=== PATIENT | male | born 1995 | race Caucasian/White ===

== ENCOUNTER 2016-06-13 13:33 | Outpatient (CLI) | payer OTHER | END 2016-06-13 13:34 | disposition home or self-care (01) | DX: R05 Cough (principal) ==

== ENCOUNTER 2020-08-22 12:54 | Emergency (ER) | payer OTHER ==
[2020-08-22 13:00] VITALS: BP 178/74
[2020-08-22] MEDS ORDERED: TETANUS/DIPHTHERIA/PERTUSSIS 0.5 ML SYRINGE IM ONE (13:28)
--- NOTE | 2020-08-22 13:31 | ED Physician Documentation ---
History of Present Illness - Stated complaint Stated Complaint: RT THUMB LAC - Chief complaint Chief Complaint: Laceration - History obtained from History obtained from: Patient, Family - History of Present Illness Timing: Today (25-year-old gentleman with unknown tetanus status cut his hand, the right thumb which is the dominant 1 on a mandolin slicer while working today.) PD PAST MEDICAL HISTORY - Past Medical History Past Medical History: No Cardiovascular: None Respiratory: Asthma Neuro: None Endocrine/Autoimmune: None GI: None : None HEENT: None Psych: ADD/ADHD Musculoskeletal: None Derm: None - Past Surgical History Past Surgical History: No - Present Medications Home Medications: Ambulatory Orders Medication Instructions Recorded Confirmed Albuterol Sulfate [Proair Hfa 1 - 2 puffs INH Q4H PRN 08/22/20 08/22/20 Inhaler] Bacitracin Zinc Oint 1 applic TOP DAILY #1 gm 08/22/20 - Allergies Allergies/Adverse Reactions: Allergies Allergy/AdvReac Type Severity Reaction Status Date / Time No Known Drug Allergies Allergy Verified 08/22/20 13:00 - Social History Does the pt smoke?: No Smoking Status: Never smoker Does the pt drink ETOH?: No Does the pt have substance abuse?: No - Immunizations Immunizations are current?: Yes - POLST Patient has POLST: No PD ED PE NORMAL - Vitals Vital signs reviewed: Yes - General General: Alert and oriented X 3, No acute distress - Extremities Extremities: Other (On the end of the right thumb, radial side there is a 5 mm x 1 cm tissue defect with active bleeding. No nailbed involvement.) - Neuro Neuro: Alert and oriented X 3, Normal speech - Psych Psych: Normal mood, Normal affect Results - Vitals Vitals: Vital Signs - 24 hr 08/22/20 12:57 Temperature 36.2 C L Heart Rate 107 H Respiratory 16 Rate Blood Pressure 178/74 H O2 Saturation 97 Oxygen O2 Source Room air PD MEDICAL DECISION MAKING - ED course ED course: The wound was irrigated and then dressed with Gelfoam and tube gauze with hemostasis and he was counseled on wound care. Tetanus was updated. Departure - Departure Disposition: 01 Home, Self Care Clinical Impression: Fingertip amputation Qualifiers: Encounter type: initial encounter Qualified Code(s): S68.119A - Complete traumatic metacarpophalangeal amputation of unspecified finger, initial encounter Condition: Good Record reviewed to determine appropriate education?: Yes Instructions: ED Laceration Amputation Finger Tip Open Tx Prescriptions: Bacitracin Zinc Oint 1 applic TOP DAILY #1 gm Comments: Keep the current dressing on until Monday morning. At that time you can wash briefly with soap and water and then apply the antibiotic ointment, a nonstick dressing such as Telfa and a loose wrap. Over the next couple weeks this defect will fill in completely. If you are not healing well over time follow-up with your primary care physician for reevaluation. Return for new or worsening symptoms. Forms: Activity restrictions
== END 2020-08-22 13:40 | disposition home or self-care (01) ==
LOC: ED 12:54
DX: S61.011A Laceration without foreign body of right thumb without damage to nail, initial encounter (principal); W27.4XXA Contact with kitchen utensil, initial encounter; Y99.0 Civilian activity done for income or pay; Z23 Encounter for immunization
CPT/HCPCS: 90471; 99281; 99283

== ENCOUNTER 2021-06-29 08:00 | Outpatient (CLI) | payer OTHER ==
[2021-06-29 22:38] LABS: CHLAMYDIA TRACHOMATIS DNA NEGATIVE (NEGATIVE); NEISSERIA GONORRHOEAE DNA NEGATIVE (NEGATIVE)
[2021-06-30 11:41] LABS: HEPATITIS C ANTIBODY NON-REACTIVE (NON-REACTIVE)
[2021-06-30 12:46] LABS: HIV AG/AB 4TH GEN NON-REACTIVE (NON-REACTIVE)
[2021-07-01 13:31] LABS: HSV 1 IGG TYPE SPECIFIC AB <0.90 index; HSV 2 IGG TYPE SPECIFIC AB <0.90 index
== END 2021-06-29 23:59 ==
LOC: LAB.N 08:00
PROVIDERS: ATTEND Nurse Practitioner
DX: Z11.3 Encounter for screening for infections with a predominantly sexual mode of transmission (principal)
CPT/HCPCS: 81599; 86592; 86695; 86696; 86803; 87389; 87491; 87591; 87661

== ENCOUNTER 2022-07-22 09:09 | Day surgery (SDC) | payer MEDICAID ==
[2022-07-22] MEDS ORDERED: LACTATED RINGERS 1,000 ML IV ONE ×2 (09:21→11:01)
--- NOTE | 2022-07-22 09:54 | ANESTHESIA ---
Pre-Anesthesia VS, & Labs - Diagnosis Reflux and cough - Procedure EGD Vital Signs: Temp Pulse Resp BP Pulse Ox O2 Flow Rate 36.1 C L 81 18 142/93 H 96 07/22/22 09:22 07/22/22 09:22 07/22/22 09:22 07/22/22 09:22 07/22/22 09:22 Height: 6 ft Weight (kg): 126.55 kg Body Mass Index: 37.8 BMI Classification: Obese - NPO >8 hours Home Medications and Allergies Home Medications: Ambulatory Orders Montelukast [Singulair] 10 mg PO QPM 07/21/22 Tamoxifen [Nolvadex] 10 mg PO DAILY 07/21/22 Albuterol Sulfate [Proair Hfa Inhaler] 1 - 2 puffs INH Q4H PRN 08/22/20 Montelukast [Singulair] 10 mg PO QPM 07/21/22 Tamoxifen [Nolvadex] 10 mg PO DAILY 07/21/22 Allergies/Adverse Reactions: Allergies Allergy/AdvReac Type Severity Reaction Status Date / Time No Known Drug Allergies Allergy Verified 07/22/22 09:22 Anes History & Medical History - Anesthetic History Anesthesia Complications: reports: No previous complications - Medical History Cardiovascular: reports: None Pulmonary: reports: Asthma, Sleep apnea (scheduled for sleep study) Gastrointestinal: reports: None Urinary: reports: None Neuro: reports: None Musculoskeletal: reports: None Endocrine/Autoimmune: reports: None Blood Disorders: reports: None Skin: reports: None Smoking Status: Never smoker Psychosocial: reports: Other (ADHD) History of Cancer?: No - Surgical History Orthopedic: reports: Other (left humerous ORIF) Exam General: Alert, Oriented x3, Cooperative, No acute distress Dental: WNL Mouth Openin Fingerbreadth Neck Mobility: Normal Mallampati classification: II Thyromental Distance: 4-6 cm Mental/Cognitive Status: Alert/Oriented X3, Normal for patient Plan Anesthesia Type: General, Total IV Consent for Procedure(s) Verified and Reviewed: Yes Code Status: Attempt Resuscitation ASA classification: 3-Severe systemic disease Is this case an emergency?: No
[2022-07-22] MEDS ORDERED: LIDOCAINE-MPF 2% 5 ML VIAL ONE (10:23)
[2022-07-22] MEDS ORDERED: PROPOFOL 200 MG/20 ML VIAL IVP ONE ×2 (10:23→10:51)
[2022-07-22] MEDS ORDERED: MIDAZOLAM 2 MG/2 ML VIAL ONE (10:23)
[2022-07-22 11:05] VITALS: BP 143/80
--- NOTE | 2022-07-22 13:09 | ANESTHESIA POST OP EVALUATION ---
Anesthesia Post Eval - Post Anesthesia Eval Vitals: Last Vital Signs Temp 36.0 C L 07/22/22 11:15 Pulse 98 07/22/22 11:15 Resp 15 07/22/22 11:15 BP 143/80 H 07/22/22 11:15 Pulse Ox 95 07/22/22 11:15 O2 Flow Rate CV Function Including HR & BP: Stable Pain Control: Satisfactory Nausea & Vomiting: Negative Mental Status: Baseline Respiratory Status: Airway Patent Hydration Status: Satisfactory Anesthesia Complications: None
== END 2022-07-22 09:10 | disposition home or self-care (01) ==
LOC: SDS 09:09
PROVIDERS: ATTEND Surgery
PROC: 0DB58ZX Excision of Esophagus, Via Natural or Artificial Opening Endoscopic, Diagnostic (ICD-10-PCS; principal; 2022-07-22 10:30)
DX: R05.3 Chronic cough (principal); M51.36 Other intervertebral disc degeneration, lumbar region; E66.9 Obesity, unspecified; J45.909 Unspecified asthma, uncomplicated; G47.30 Sleep apnea, unspecified; R73.01 Impaired fasting glucose; Z13.9 Encounter for screening, unspecified; Z68.38 Body mass index [BMI] 38.0-38.9, adult; Z83.3 Family history of diabetes mellitus
CPT/HCPCS: 36415; 43239; 71046; 72110; 80053; 83036; 84443; 85025; J7120

== ENCOUNTER 2022-07-22 11:46 | Outpatient (CLI) | payer MEDICAID ==
[2022-07-22 12:07] LABS: BASOPHILS # (AUTO) 0.1 10^3/uL (0.0-0.1); BASOPHILS % (AUTO) 0.9 %; EOSINOPHILS # (AUTO) 0.1 10^3/uL (0.0-0.7); EOSINOPHILS % (AUTO) 2.2 %; HCT - HEMATOCRIT 43.3 % (42.0-52.0); HGB - HEMOGLOBIN 13.9 g/dL (14.0-18.0); LYMPHOCYTES # (AUTO) 2.1 10^3/uL (1.5-3.5); LYMPHOCYTES % (AUTO) 32.5 %; MEAN CORPUSCULAR HEMOGLOBIN 26.4 pg (27.0-31.0); MEAN CORPUSCULAR HGB CONC 32.1 g/dL (32.0-36.0); MEAN CORPUSCULAR VOLUME 82.2 fL (80.0-94.0); MEAN PLATELET VOLUME 11.1 fL (7.4-11.4); MONOCYTES # (AUTO) 0.4 10^3/uL (0.0-1.0); MONOCYTES % (AUTO) 5.9 %; NEUTROPHILS # (AUTO) 3.8 10^3/uL (1.5-6.6); NEUTROPHILS % (AUTO) 58.3 %; PLT - PLATELET COUNT 231 10^3/uL (130-450); RED BLOOD COUNT 5.27 10^6/uL (4.70-6.10); WHITE BLOOD COUNT 6.4 x10^3/uL (4.8-10.8)
[2022-07-22 12:24] LABS: ALBUMIN 3.7 g/dL (3.2-5.5); BILIRUBIN,TOTAL 0.6 mg/dL (0.2-1.0); CALCIUM 8.4 mg/dL (8.5-10.3); CREATININE 0.8 mg/dL (0.6-1.2); POTASSIUM 3.8 mmol/L (3.5-5.0); TOTAL PROTEIN 7.3 g/dL (6.7-8.2)
[2022-07-22 12:41] LABS: THYROID STIMULATING HORMONE 3.92 uIU/mL (0.34-5.60)
--- NOTE | 2022-07-22 14:38 | XRAY Report ---
PROCEDURE: Chest 2 View X-Ray INDICATIONS: CHRONIC COUGH TECHNIQUE: 2 views of the chest were acquired. COMPARISON: None. FINDINGS: Surgical changes and devices: None. Lungs and pleura: No pleural effusions or pneumothorax. Lungs are clear. Mediastinum: Mediastinal contours appear normal. Heart size is normal. Bones and chest wall: No suspicious bony lesions. Overlying soft tissues appear unremarkable. IMPRESSION: No acute cardiopulmonary process. Reviewed by: Luis Gallgeos on 07/22/2022 2:36 PM PDT Approved by: Luis Gallegos on 07/22/2022 2:36 PM PDT Station ID: [id number]
--- NOTE | 2022-07-22 14:48 | XRAY Report ---
PROCEDURE: Lumbar Spine Complete INDICATIONS: BACK PAIN,LUMBAR TECHNIQUE: 4 views of the lumbar spine were acquired. COMPARISON: None. FINDINGS: Bones: 5 [id number] vertebrae are present. Convex left curvature of the spine. Mild disc height loss at all levels. Grade 1 retrolisthesis of L2 on L3. Soft tissues: Overlying bowel gas pattern is normal. No suspicious soft tissue calcifications. IMPRESSION: Mild, multilevel degenerative disc disease. Convex left curvature of the spine. Reviewed by: Luis Gallegos on 07/22/2022 2:47 PM PDT Approved by: Luis Gallegos on 07/22/2022 2:47 PM PDT Station ID: [id number]
[2022-07-22 21:46] LABS: ESTIMATED AVERAGE GLUCOSE 120 mg/dL (70-100); HEMOGLOBIN A1c% 5.8 % (4.27-6.07)
== END 2022-07-22 11:47 | disposition home or self-care (01) ==
LOC: DI 11:46
PROVIDERS: ATTEND Physician Assistant
DX: R05.3 Chronic cough (principal); M51.36 Other intervertebral disc degeneration, lumbar region; Z13.9 Encounter for screening, unspecified; R73.01 Impaired fasting glucose
CPT/HCPCS: 36415; 80053; 83036; 84443; 85025

== ENCOUNTER 2022-08-01 11:15 | Outpatient (CLI) | payer MEDICAID ==
--- NOTE | 2022-08-01 12:36 | SLEEP CARE CONSULTATION ---
Information from patient questionnaire entered by Kamaljit Doherty. I have reviewed and concur with the information entered by Kamaljit Doherty. This document represents the service I personally performed and the decisions made by me, Merlyn Selby MD, [facility]. History of Present Illness Service Date and Time: 08/01/2022 1115 Reason for Visit: New patient Chief Complaint: reports: Insomnia, Unrefreshed sleep, Snoring, Excessive daytime sleepiness, Observed pauses in breathing, Fatigue, Frequent awakenings at night Date of Onset: WHOLE LIFE Usual bedtime: 2AM Time it takes to fall asleep: 30MIN Snores at night: Yes Observed to quit breathing while asleep: Yes Sleeps alone due to snoring: No Reasons for waking at night: reports: Other (UNKNOWN) Toss, Turn, or Twitch while sleeping: Yes Recalls having dreams: No Usually gets out of bed at: 11AM Feels refreshed in the morning: No Morning headache: No Sleepy or fatigued during the day: Yes Ever fallen asleep while driving: No Takes day naps: No Dreams during day naps: No Prior sleep studies: No Additional HPI information: I had the pleasure of seeing Mr. Brandt today regarding the possibility of him having a sleep disorder. As you know, he is a 27-year-old gentleman who complains of frequent awakenings, insomnia, unrefreshed sleep, and excessive daytime sleepiness. When he was hospitalized last year for arm surgery, he was told that he quit breathing in his sleep and had to be put on oxygen. The patient tells me that he normally goes to bed around 2 am, and it takes him approximately 30 minutes to fall asleep. He has been told that he snores loudly and irregularly at night. He sleeps alone. He can recall waking up on the average of 0 times during the night. Most of the time he wakes up because of unknown reason. He has awakened occasionally because of his own snoring, choking, and having to gasp for air. There is a lot of tossing and turning in his sleep. No somniloquy (sleep talking) or somnambulism (sleep walking). Generally, there is no recollection of dreams. In the morning he usually gets up out of the bed around 11 a.m. 1 p.m. not feeling refreshed nor rested. He usually does not have a morning headache. During the day he complains of feeling sleepy and fatigued. His score on [place] Sleepiness Scale is 8 out of 24. He has never fallen asleep while driving nor has had any accident due to sleepiness. He usually does not take naps during the day. Upon falling asleep during the day he denies having vivid dreams. He has never had sleep paralysis, experienced cataplexy but reports symptoms of restless leg syndrome. He complains of having impaired concentration during the day. 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 Patient is Single and lives in [place]. Have you smoked in the past 12 months: No Alcohol use: Yes Alcohol amount and frequency: 4-6 SHOTS AT [employer] Caffeine use: Yes Caffeine amount and frequency: 3-6 SHOTS 4-5 DAYS A WEEK Family History Family history of sleep disordered breathing: Yes Family Hx Sleep Apnea: Father: Snoring, Sleep apnea - Treated Allergies and Home Medications Known drug allergies: No Drug allergies reviewed: Yes Home medication list reviewed: Yes (Strattera, montelukast) Allergy and home medication list: Allergies No Known Drug Allergies Allergy (Verified 07/22/22 09:22) Review of Systems Cardiovascular: denies: high blood pressure, palpitations, chest pain, irregular heart rate or pulse, leg or foot swelling, have to sleep sitting up, other Respiratory: reports: chronic cough Gastrointestinal: denies: heartburn, difficulty swallowing, nausea, vomitting, diarrhea, abdominal pain, other Urinary: denies: incontinence, frequency, urgency, impotence, other Neurological: denies: headaches, seizure, head trauma, disorientation, speech dysfunction, gait or balance problems, fainting or unconsciousness, other Psychiatric: reports: Attention Deficit Hyperactivity Ear/Nose/Throat: reports: nasal congestion, sinus problems, dry mouth/throat Endocrine: denies: thyroid disease, history of goiter, sluggishness, too hot or cold, excessive thirst, increased appetite, increased urination, unexplained weakness, other Musculoskeletal: denies: joint pain, neck pain, back pain, joint swelling, muscle pain or cramping, mobility problems, other Immunologic: denies: sneezing, rash, itching, allergies to food or environment, other Physical Exam Vital signs obtained and entered by: KAMALJIT Franklin MA Blood Pressure: 140/90 (LEFT ARM) Cuff size: long Heart Rate: 91 O2 Saturation: 97 Height: 5 ft 11 in Weight: 288 lb 9.6 oz Body Mass Index: 40.2 BMI Classification: Morbidly Obese Neck circumference: 19 Mood/affect: normal HEENT: No craniofacial malformation Nostrils: patent to airflow Turbinates: normal Septum: midline Mouth and throat: narrow oropharynx Soft palate: long Hard palate: normal Uvula: normal Uvula visualization: 50% Mallampati Class II Tonsils: small Chin and jaw: normal size and position Neck: normal w/o lymphadenopathy or thyromegaly Heart: regular rate and rhythm Lungs: clear bilaterally Extremities: no edema or clubbing Neurologic: intact Impression and Plan IMPRESSION: 1. Obstructive Sleep Apnea-Hypopnea Syndrome, as suggested by history of loud and irregular snoring, observed cessation of breath while asleep, unrefreshed sleep, cognitive impairment, and daytime hypersomnolence. Narrow oropharynx and obesity are common predisposing factors for obstructive sleep apnea-hypopnea syndrome. I recommend proceeding to polysomnography to confirm the diagnosis and to assess severity. If he has significant sleep disordered breathing, a manual CPAP titration study will also be performed to find the optimal treatment pressure. I informed the patient of what the sleep studies involve and after some discussion, he agreed to proceed. Plan: 1. Schedule polysomnography + manual CPAP titration study and return in 1 to 2 weeks after the study to discuss result and initiate therapy. 2. Avoid long distance driving or when feeling sleepy. 3. Avoid alcohol, sedative and muscle relaxant around bedtime. 4. Attempt to lose weight. Counseling Topics: Weight control Follow up with Sleep Care in: 1-2 months Visit Type: In Office Time Spent with Patient (minutes): 15 Provider Statement: I spent 100% of the Face to Face Visit with the patient with greater than 50% spent counseling the patient and coordination of care.
[2022-08-01 12:37] VITALS: BP 140/90
== END 2022-08-01 11:16 | disposition home or self-care (01) ==
LOC: SC 11:15
PROVIDERS: ATTEND Internal Medicine Pulmonary Disease
DX: G47.10 Hypersomnia, unspecified (principal); R06.83 Snoring; G47.8 Other sleep disorders; R06.81 Apnea, not elsewhere classified; E66.01 Morbid (severe) obesity due to excess calories; Z68.41 Body mass index [BMI] 40.0-44.9, adult
CPT/HCPCS: 99202; 99212

== ENCOUNTER 2022-08-21 20:38 | Outpatient (CLI) | payer MEDICAID | END 2022-08-21 20:39 | disposition home or self-care (01) | LOC: SC 20:38 | PROVIDERS: ATTEND Internal Medicine Pulmonary Disease | DX: G47.10 Hypersomnia, unspecified (principal); R06.83 Snoring; G47.8 Other sleep disorders; R06.81 Apnea, not elsewhere classified; E66.01 Morbid (severe) obesity due to excess calories; Z68.41 Body mass index [BMI] 40.0-44.9, adult | CPT/HCPCS: 95810 ==

== ENCOUNTER 2022-09-05 16:53 | Outpatient (CLI) | payer MEDICAID ==
--- NOTE | 2022-09-05 15:45 | SLEEP CARE CONSULTATION ---
Information from patient questionnaire entered by Kamaljit Doherty. I have reviewed and concur with the information entered by Kamaljit Doherty. This document represents the service I personally performed and the decisions made by me, Merlyn Selby MD, [facility]. History of Present Illness Service Date and Time: 09/05/2022 1540 Initial [place] Sleepiness Scale score: 8 (08/01/22) Current [place] Sleepiness Scale score: 9 (09/05/22) Additional HPI information: Mr. Brandt returned for follow up of the sleep study he had on 08/21/2022. The polysomnography showed that the patient had normal sleep efficiency. The sleep architecture was abnormal for mild sleep fragmentation and reduced amount of time spent in slow wave sleep (N3). Respiratory monitoring showed no significant sleep disordered breathing (AHI = 3.0) or hypoxia (joana oxygen saturation of 85 % but only 0.3% to the total sleep time was spent with oxygen saturation below 90%). The few respiratory events occurred mainly during REM sleep (supine AHI = 4.1; non-supine = 2.16). Snore was light to moderate in intensity. There was no significant periodic leg movement of sleep. Cardiac rhythm was normal sinus rhythm without significant arrhythmia. No abnormal behavior (parasomnia) observed during the night. The patient was informed of these findings. I explained to him that the sleep study was within normal limits. He said he came in for the sleep study because he was witnessed to stop breathing after a procedure. Sleep Study - Results Type of Sleep Study: Polysomnography (COMPLETED 08/21/22) Prior sleep studies: No Allergies and Home Medications Allergy and home medication list: Allergies No Known Drug Allergies Allergy (Verified 09/05/22 09:03) Physical Exam Vital signs obtained and entered by: KAMALJIT Franklin MA Height: 5 ft 11 in (PER PT) Weight: 280 lb (PER PT) Body Mass Index: 39.0 BMI Classification: Obese Impression and Plan IMPRESSION: 1. Primary Snore (ICD-10 R06.83), light to moderate, but no significant sleep disordered breathing. Sedatives and opiates given at the time of his surgery probably caused him to have obstructive sleep apnea-hypopnea during the recovery period. No treatment is indicated at home. PLAN: 1. Avoid weight gain. 2. Avoid alcohol and muscle relaxants. 3. Return for follow up on as needed basis. Follow up with Sleep Care in: as needed Follow up recommended for: Weight management Visit Type: Telehealth Video Video Type: Doximity Patient Location: car Location of Provider: Office Patient agrees and consents to this telehealth visit type: Yes Patient agrees to have their insurance billed: Yes Time Spent with Patient (minutes): 15 Provider Statement: I spent 100% of the Telehealth Video Call with the patient with greater than 50% spent counseling the patient and coordination of care.
== END 2022-09-05 16:54 | disposition home or self-care (01) ==
LOC: SC 16:53
PROVIDERS: ATTEND Internal Medicine Pulmonary Disease
DX: R06.83 Snoring (principal); E66.9 Obesity, unspecified; Z68.39 Body mass index [BMI] 39.0-39.9, adult

== ENCOUNTER 2022-11-21 13:02 | Outpatient (CLI) | payer MEDICAID ==
[2022-11-21 13:28] LABS: ESTIMATED AVERAGE GLUCOSE 117 mg/dL (70-100); HEMOGLOBIN A1c% 5.7 % (4.27-6.07)
[2022-11-21 13:38] LABS: BUN - BLOOD UREA NITROGEN 17 mg/dL (6-20); CALCIUM 9.2 mg/dL (8.5-10.3); CARBON DIOXIDE - CO2 25 mmol/L (21-32); CHLORIDE 106 mmol/L (101-111); CHOL/HDL RATIO 5.4 (<5.0); CHOLESTEROL 195 mg/dL; CREATININE 0.8 mg/dL (0.6-1.3); GFR - MDRD 116 (>89); GLUCOSE 102 mg/dL (74-104); HDL CHOLESTEROL 36 mg/dL; LDL CHOLESTEROL,CALCULATED 137 mg/dL; LDL/HDL RATIO 3.8 (<3.6); POTASSIUM 3.9 mmol/L (3.5-4.5); SODIUM 137 mmol/L (135-145); TRIGLYCERIDES 111 mg/dL (48-352); VLDL CHOLESTEROL 22 mg/dL
== END 2022-11-21 13:03 | disposition home or self-care (01) ==
LOC: LAB 13:02
PROVIDERS: ATTEND Physician Assistant
DX: R73.03 Prediabetes (principal)
CPT/HCPCS: 36415; 80048; 80061; 83036; 83721